=== PATIENT | female | born 1930 | race Caucasian/White ===

== ENCOUNTER 2016-12-01 15:25 | Outpatient (CLI) | payer MEDICARE, OTHER | END 2016-12-01 15:26 | disposition critical access hospital (66) | LOC: EMS 15:25 | PROVIDERS: ATTEND Surgery | DX: S00.11XA Contusion of right eyelid and periocular area, initial encounter (principal); W01.198A Fall on same level from slipping, tripping and stumbling with subsequent striking against other object, initial encounter; Y92.128 Other place in nursing home as the place of occurrence of the external cause | CPT/HCPCS: A0425; A0429 ==

== ENCOUNTER 2016-12-01 15:40 | Emergency (ER) | payer MEDICARE, OTHER ==
--- NOTE | 2016-12-01 15:54 | ED Physician Documentation ---
PD HPI Fall - Stated complaint Stated Complaint: GLF - Chief complaint Chief Complaint: Trauma Hd/Nk - History obtained from History obtained from: Patient, EMS - History of Present Illness Mechanism of injury: Tripped Fall distance: Standing position Where injury occurred: Home Timing - onset: Today Injury(ies) location: Face Quality of pain: Pain Associated symptoms: Amnesia. No: LOC, Seizures, Ear drainage, Nasal drainage, Neck pain, Weakness, Paresthesias, Dyspnea, Nausea / vomiting, Hematemesis, Abdominal distension Symptoms improve with: Rest Worsens with: Movement, Palpation Contributing factors: No: Anticoagulated Similar symptoms before: Has not had sx before Recently seen: Not recently seen - Additional information Additional information: 86 y/o female with an unwitnessed fall at home has a bruise over her right eye and she denies any LOC with this fall and she denies any neck, back or chest pain. Her knees hurt some but she is able to walk and does not feel they are a problem. She has been incontinent. Review of Systems Constitutional: denies: Fever, Chills Eyes: denies: Decreased vision Ears: denies: Ear pain Nose: denies: Congestion Throat: denies: Oral lesions / sores Cardiac: denies: Chest pain / pressure, Palpitations Respiratory: denies: Dyspnea, Cough GI: denies: Abdominal Pain, Nausea, Vomiting : reports: Incontinent. denies: Dysuria, Frequency Skin: denies: Rash Musculoskeletal: denies: Neck pain, Back pain, Extremity pain, Joint pain, Pain with weight bearing Neurologic: reports: Headache, Head injury, Other (poor memory is worse than usual). denies: Generalized weakness, Focal weakness, Numbness, Difficulty speaking, LOC PD PAST MEDICAL HISTORY - Past Medical History Cardiovascular: Hypertension, High cholesterol, Coronary artery disease Neuro: Dementia HEENT: Chronic hearing loss Psych: Depression - Present Medications Home Medications: Ambulatory Orders Medication Instructions Recorded Confirmed Aspirin [Aspirin EC] 81 mg PO DAILY 10/21/14 12/01/16 Cholecalciferol (Vitamin D3) 1 tab PO DAILY 10/21/14 12/01/16 [Vitamin D3] Donepezil [Aricept] 10 mg PO DAILY 10/21/14 12/01/16 Furosemide 40 mg PO DAILY 10/21/14 12/01/16 Lisinopril 10 mg PO DAILY 10/21/14 12/01/16 Metoprolol Tartrate 12.5 mg PO BID 10/21/14 12/01/16 Pravastatin Sodium [Pravachol] 20 mg PO DAILY 10/21/14 12/01/16 Sertraline [Zoloft] 25 mg PO DAILY 10/21/14 12/01/16 Ciprofloxacin HCl [Cipro] 500 mg PO BID #14 tablet 12/01/16 - Allergies Allergies/Adverse Reactions: Allergies Allergy/AdvReac Type Severity Reaction Status Date / Time No Known Drug Allergies Allergy Verified 10/21/14 13:12 - Social History Does the pt smoke?: No Smoking Status: Never smoker Does the pt drink ETOH?: No Does the pt have substance abuse?: No - Immunizations Immunizations are current?: Yes PD ED PE NORMAL - Vitals Vital signs reviewed: Yes (hypertensive ) - General General: No acute distress, Well developed/nourished - HEENT HEENT: PERRL, EOMI, Other (There is a large hematoma to the forehead on the right with ecchymosis consistent with a fresh injury ) - Neck Neck: Supple, no meningeal sign, No bony TTP - Cardiac Cardiac: RRR, No murmur - Respiratory Respiratory: No respiratory distress, Clear bilaterally - Abdomen Abdomen: Soft, Non tender - Derm Derm: Normal color, Warm and dry, No rash - Extremities Extremities: No deformity, No edema - Neuro Neuro: No motor deficit, No sensory deficit, Normal speech - Psych Psych: Normal mood, Normal affect Results - Vitals Vitals: Vital Signs - 24 hr 12/01/16 15:47 Temperature 36.6 C Heart Rate 95 Respiratory 16 Rate Blood Pressure 191/93 H O2 Saturation 97 Oxygen O2 Source Room air - Labs Labs: Laboratory Tests 12/01/16 16:26 Urine Color YELLOW Urine Clarity CLEAR Urine pH 6.0 Ur Specific [place] 1.010 Urine Protein NEGATIVE Urine Glucose (UA) NEGATIVE Urine Ketones NEGATIVE Urine Occult Blood NEGATIVE Urine Nitrite NEGATIVE Urine Bilirubin NEGATIVE Urine Urobilinogen 0.2 (NORMAL) Ur Leukocyte Esterase TRACE H Urine RBC 0-5 Urine WBC 11-25 H Ur Squamous Epith Cells FEW Squamous Urine Bacteria Few Ur Microscopic Review INDICATED Urine Culture Comments INDICATED - Rads (name of study) CT head without Radiology: Prelim report reviewed (Impression: Generalized age-related cortical atrophic changes without evidence of acute intracranial abnormality or interval change.), EMP read indepedently, See rad report PD MEDICAL DECISION MAKING - ED course Complexity details: reviewed old records, reviewed results, re-evaluated patient , considered differential, d/w patient ED course: 86 y/o female with advanced dementia has fallen again and has large hematoma to the forehead and she has UTI. CT is negative for ICH and she is discharged to the care of her daughter. Departure - Departure Disposition: Home, Self Care Clinical Impression: Fall on same level from tripping as cause of accidental injury Facial contusion Qualifiers: Encounter type: initial encounter Qualified Code(s): S00.83XA - Contusion of other part of head, initial encounter Urinary tract infection Qualifiers: Urinary tract infection type: acute cystitis Hematuria presence: without hematuria Qualified Code(s): N30.00 - Acute cystitis without hematuria Instructions: ED UTI Cystitis Female, ED Contusion Face Follow-Up: Michel Bassett MD [Primary Care Provider] - Prescriptions: Ciprofloxacin HCl [Cipro] 500 mg PO BID #14 tablet
[2016-12-01 16:31] LABS: BILIRUBIN,URINE NEGATIVE (NEGATIVE)
[2016-12-01 16:33] LABS: UA w/ MICROSCOPIC CHARGE YES
--- NOTE | 2016-12-01 16:35 | CT Preliminary Report ---
Exam: CT Head W/O IMPRESSION: Generalized age-related cortical atrophic changes without evidence of acute intracranial abnormality or interval change. [facility] SITE ID: [id number]
--- NOTE | 2016-12-01 16:38 | CT Report ---
EXAM: CT HEAD EXAM DATE: 12/01/2016 04:08 PM. CLINICAL HISTORY: Fall. Bruise above right eye. COMPARISON: 10/21/2014. TECHNIQUE: Multiaxial CT images were obtained from the foramen magnum to the vertex. IV contrast: Non e. Reformats: Coronal. In accordance with CT protocol optimization, one or more of the following dose reduction techniques w ere utilized for this exam: automated exposure control, adjustment of mA and/or KV based on patient s ize, or use of iterative reconstructive technique. FINDINGS: Parenchyma: No intraparenchymal hemorrhage. No evidence of mass, midline shift, or CT findings of acu te infarction. Hart-white differentiation is distinct. Extraaxial Spaces: Normal for age. No subdural or epidural collections identified. Ventricles: The ventricles and cortical sulci are prominent, consistent with age-related tissue loss. Sinuses: Imaged paranasal sinuses, orbits, and mastoids show no significant abnormality. Bones: No evidence of fracture or calvarial defect. Other: Stable mild chronic microangiopathic white matter changes are evident. Right frontal scalp hem atoma noted. IMPRESSION: Generalized age-related cortical atrophic changes without evidence of acute intracranial abnormality or interval change. [facility] Referring Provider Line: [phone] SITE ID: [id number]
[2016-12-01 16:58] LABS: UR CULTURE IF IND INDICATED
[2016-12-01 17:59] VITALS: BP 188/86
== END 2016-12-01 17:59 | disposition home or self-care (01) ==
LOC: EDUNIT# → ED 15:40
DX: S00.83XA Contusion of other part of head, initial encounter (principal); W01.0XXA Fall on same level from slipping, tripping and stumbling without subsequent striking against object, initial encounter; Y92.019 Unspecified place in single-family (private) house as the place of occurrence of the external cause; N30.00 Acute cystitis without hematuria; I10 Essential (primary) hypertension; E78.00 Pure hypercholesterolemia, unspecified; I25.10 Atherosclerotic heart disease of native coronary artery without angina pectoris; F03.90 Unspecified dementia, unspecified severity, without behavioral disturbance, psychotic disturbance, mood disturbance, and anxiety; Z79.82 Long term (current) use of aspirin
CPT/HCPCS: 70450; 81001; 81003; 87077; 87086; 99283; 99284

== ENCOUNTER 2016-12-16 08:00 | Outpatient (CLI) | payer MEDICARE, OTHER ==
[2016-12-16 18:48] LABS: BASOPHILS # (AUTO) 0.1 10^3/uL (0.0-0.1); EOSINOPHILS # (AUTO) 0.1 10^3/uL (0.0-0.7); EOSINOPHILS % (AUTO) 2.2 %; HCT - HEMATOCRIT 39.5 % (37.0-47.0); HGB - HEMOGLOBIN 13.3 g/dL (12.0-16.0); LYMPHOCYTES # (AUTO) 0.9 10^3/uL (1.5-3.5); LYMPHOCYTES % (AUTO) 13.5 %; MEAN CORPUSCULAR HEMOGLOBIN 30.1 pg (27.0-31.0); MEAN CORPUSCULAR HGB CONC 33.6 g/dL (32.0-36.0); MEAN CORPUSCULAR VOLUME 89.6 fL (81.0-99.0); MEAN PLATELET VOLUME 9.6 fL (7.9-10.8); MONOCYTES # (AUTO) 0.5 10^3/uL (0.0-1.0); MONOCYTES % (AUTO) 7.3 %; NEUTROPHILS # (AUTO) 5.1 10^3/uL (1.5-6.6); NUCLEATED RED BLOOD CELLS AUTO 0.1 /100WBC; RED CELL DISTRIBUTION WIDTH 14.1 % (12.0-15.0); UNCORRECTED WHITE BLOOD COUNT 6.8 x10^3/uL; WHITE BLOOD COUNT 6.8 x10^3/uL (4.8-10.8)
[2016-12-16 19:06] LABS: ALBUMIN/GLOBULIN RATIO 1.6 (1.0-2.2); BILIRUBIN,TOTAL 0.7 mg/dL (0.2-1.0); CALCIUM 9.8 mg/dL (8.5-10.3); CREATININE 1.3 mg/dL (0.4-1.0); POTASSIUM 3.9 mmol/L (3.5-5.0); TOTAL PROTEIN 6.4 g/dL (6.7-8.2)
== END 2016-12-16 08:01 | disposition home or self-care (01) ==
LOC: LAB.WCP 08:00
PROVIDERS: ATTEND Family Medicine
DX: I50.9 Heart failure, unspecified (principal)
CPT/HCPCS: 36415; 80053; 85025

== ENCOUNTER 2017-02-08 08:22 | Outpatient (CLI) | payer MEDICARE, OTHER | END 2017-02-08 08:23 | disposition critical access hospital (66) | LOC: EMS 08:22 | PROVIDERS: ATTEND Surgery | DX: R04.0 Epistaxis (principal) | CPT/HCPCS: A0425; A0429 ==

== ENCOUNTER 2017-02-08 08:37 | Emergency (ER) | payer MEDICARE, OTHER ==
--- NOTE | 2017-02-08 09:23 | ED Physician Documentation ---
PD HPI HEENT - Stated complaint Stated Complaint: NOSE BLEED - Chief complaint Chief Complaint: Heent - History obtained from History obtained from: Patient - History of Present Illness Timing - onset: How many minutes ago (30), Today Timing - duration: Minutes (30) Timing - details: Abrupt onset (had just blown her nose and bleeding stopped.) Location: Nose (onset nosebleed and has continued, though less with pinching enroute.) Associated symptoms: Other (some nasal congestion the past week.). No: Fever, Cough Similar symptoms before: Has not had sx before Recently seen: Not recently seen Review of Systems Constitutional: denies: Fever, Chills Nose: reports: Congestion. denies: Rhinorrhea / runny nose, Sinus pressure / pain Throat: denies: Sore throat Respiratory: denies: Cough GI: denies: Nausea, Vomiting PD PAST MEDICAL HISTORY - Past Medical History Past Medical History: Yes Cardiovascular: Hypertension, High cholesterol, Coronary artery disease Neuro: Dementia HEENT: Chronic hearing loss Psych: Depression - Present Medications Home Medications: Ambulatory Orders Medication Instructions Recorded Confirmed Cholecalciferol (Vitamin D3) 1 tab PO DAILY 10/21/14 02/08/17 [Vitamin D3] Lisinopril 10 mg PO DAILY 10/21/14 02/08/17 Metoprolol Tartrate 12.5 mg PO BID 10/21/14 02/08/17 Pravastatin Sodium [Pravachol] 20 mg PO DAILY 10/21/14 02/08/17 Sertraline [Zoloft] 25 mg PO DAILY 10/21/14 02/08/17 - Allergies Allergies/Adverse Reactions: Allergies Allergy/AdvReac Type Severity Reaction Status Date / Time No Known Drug Allergies Allergy Verified 02/08/17 08:48 - Social History Does the pt smoke?: No Smoking Status: Never smoker Does the pt drink ETOH?: No Does the pt have substance abuse?: No - Immunizations Immunizations are current?: Yes PD ED PE NORMAL - Vitals Vital signs reviewed: Yes - General General: Alert and oriented X 3, No acute distress, Well developed/nourished - HEENT HEENT: Ears normal, Pharynx benign, Other (left anterior medial wall with small vessel bleeding ongoing when pressure stopped. No erosions. 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, No motor deficit, Normal speech Results - Vitals Vitals: Vital Signs - 24 hr 02/08/17 11:15 Temperature 36.3 C L Heart Rate 96 Respiratory 20 Rate Blood Pressure 174/99 H O2 Saturation 96 Oxygen O2 Source Room air - Labs Labs: Laboratory Tests 02/08/17 02/08/17 10:25 10:25 WBC 8.1 RBC 3.91 L Hgb 11.7 L Hct 34.6 L MCV 88.6 MCH 29.9 MCHC 33.8 RDW 13.9 Plt Count 195 MPV 8.8 Neut # 6.6 Lymph # 0.7 L [place] # 0.6 Eos # 0.1 Baso # 0.1 Absolute Nucleated RBC 0.00 Nucleated RBCs 0.0 Sodium 141 Potassium 4.2 Chloride 109 Carbon Dioxide 27 Anion Gap 5.0 L BUN 33 H Creatinine 1.0 Estimated GFR (MDRD) 52 L Glucose 105 H Calcium 9.6 Total Bilirubin 0.5 AST 16 ALT 11 Alkaline Phosphatase 87 Total Protein 6.0 L Albumin 3.4 Globulin 2.6 Albumin/Globulin Ratio 1.3 Lipase 34 Procedures - Epistaxis Site: Left, Anterior Preparation: Clots removed, Afrin, Lidocaine Treatment: Silver Nitrate, Anterior rhinorocket (initially placed and then she pulled it out when wiped her nose in bathroom. But recheck shows no bleeding, so just put some gauze packing in and no further bleeding.) Other: Observed - no bleeding, Pt tolerated well Departure - Departure Disposition: 01 Home, Self Care Clinical Impression: Epistaxis Condition: Stable Record reviewed to determine appropriate education?: Yes Instructions: ED Nasal Packing Anterior Removable, ED Nosebleed Follow-Up: Michel Bassett MD [Primary Care Provider] - Comments: Leave the gauze packing in the left nostril for a day and then it is okay to remove it gently. If you have recurrent bleeding today, spray the gauze with the oxygen metolazone and pinch it for 10-15 minutes. If bleeding continues then return to the ER. Discharge Date/Time: 02/08/17 11:15
[2017-02-08] MEDS ORDERED: OXYMETAZOLINE NASAL SPRAY NAS STA (09:25)
[2017-02-08] MEDS ORDERED: OXYMETAZOLINE NASAL SPRAY NAS ONE (09:29)
[2017-02-08 10:30] LABS: BASOPHILS # (AUTO) 0.1 10^3/uL (0.0-0.1); BASOPHILS % (AUTO) 0.9 %; EOSINOPHILS # (AUTO) 0.1 10^3/uL (0.0-0.7); EOSINOPHILS % (AUTO) 1.3 %; HCT - HEMATOCRIT 34.6 % (37.0-47.0); HGB - HEMOGLOBIN 11.7 g/dL (12.0-16.0); LYMPHOCYTES # (AUTO) 0.7 10^3/uL (1.5-3.5); LYMPHOCYTES % (AUTO) 8.9 %; MEAN CORPUSCULAR HEMOGLOBIN 29.9 pg (27.0-31.0); MEAN CORPUSCULAR HGB CONC 33.8 g/dL (32.0-36.0); MEAN CORPUSCULAR VOLUME 88.6 fL (81.0-99.0); MEAN PLATELET VOLUME 8.8 fL (7.9-10.8); MONOCYTES # (AUTO) 0.6 10^3/uL (0.0-1.0); MONOCYTES % (AUTO) 7.3 %; NEUTROPHILS # (AUTO) 6.6 10^3/uL (1.5-6.6); NEUTROPHILS % (AUTO) 81.6 %; RED BLOOD COUNT 3.91 10^6/uL (4.20-5.40); RED CELL DISTRIBUTION WIDTH 13.9 % (12.0-15.0); UNCORRECTED WHITE BLOOD COUNT 8.1 x10^3/uL; WHITE BLOOD COUNT 8.1 x10^3/uL (4.8-10.8)
[2017-02-08 10:48] LABS: ALBUMIN/GLOBULIN RATIO 1.3 (1.0-2.2); BILIRUBIN,TOTAL 0.5 mg/dL (0.2-1.0); CALCIUM 9.6 mg/dL (8.5-10.3); POTASSIUM 4.2 mmol/L (3.5-5.0)
[2017-02-08 11:16] VITALS: BP 174/99
== END 2017-02-08 11:15 | disposition home or self-care (01) ==
LOC: EDUNIT# → ED 08:37
DX: R04.0 Epistaxis (principal); I10 Essential (primary) hypertension; I25.10 Atherosclerotic heart disease of native coronary artery without angina pectoris; E78.00 Pure hypercholesterolemia, unspecified; F03.90 Unspecified dementia, unspecified severity, without behavioral disturbance, psychotic disturbance, mood disturbance, and anxiety
CPT/HCPCS: 30903; 36415; 80053; 83690; 85025; 99282; 99283; A9270

== ENCOUNTER 2017-10-13 07:42 | Outpatient (CLI) | payer MEDICARE, OTHER | END 2017-10-13 07:43 | disposition critical access hospital (66) | LOC: EMS 07:42 | PROVIDERS: ATTEND Surgery | DX: S09.90XA Unspecified injury of head, initial encounter (principal); W18.30XA Fall on same level, unspecified, initial encounter; Y92.098 Other place in other non-institutional residence as the place of occurrence of the external cause | CPT/HCPCS: A0425; A0429 ==

== ENCOUNTER 2017-10-13 08:00 | Emergency (ER) | payer MEDICARE, OTHER ==
--- NOTE | 2017-10-13 08:16 | ED Physician Documentation ---
PD HPI Fall - Stated complaint Stated Complaint: FALL - Chief complaint Chief Complaint: General - History obtained from History obtained from: Patient, EMS - History of Present Illness Mechanism of injury: Unknown Fall distance: Unknown Where injury occurred: Other ([facility]) Similar symptoms before: Diagnosis (Review of her medical records reveals previous evaluation in the emergency department for falling.) - Additional information Additional information: The patient is an 86-year-old female who arrives via ambulance from [facility] after staff there this morning found her lying on the floor. She had apparently fallen, but the fall was unwitnessed. She had been sitting in a chair, but it is unknown whether she fell from the chair or from a standing position. She had urinary incontinence, which is not usual for her. She denies any pain at this time, and states she does not know why she was sent to the emergency department. She has a history of dementia. Review of her medical records reveals previous evaluation in the emergency department after falling nearly 1 year ago. Review of Systems Unable to obtain: Dementia Throat: denies: Sore throat Cardiac: denies: Chest pain / pressure Respiratory: denies: Dyspnea GI: denies: Abdominal Pain : denies: Dysuria Musculoskeletal: denies: Neck pain, Back pain, Extremity pain Neurologic: denies: Headache PD PAST MEDICAL HISTORY - Past Medical History Cardiovascular: Hypertension, High cholesterol, Coronary artery disease Neuro: Dementia HEENT: Chronic hearing loss Psych: Depression - Present Medications Home Medications: Ambulatory Orders Medication Instructions Recorded Confirmed Cholecalciferol (Vitamin D3) 1 tab PO DAILY 10/21/14 02/08/17 [Vitamin D3] Lisinopril 10 mg PO DAILY 10/21/14 02/08/17 Metoprolol Tartrate 12.5 mg PO BID 10/21/14 02/08/17 Pravastatin Sodium [Pravachol] 20 mg PO DAILY 10/21/14 02/08/17 Sertraline [Zoloft] 25 mg PO DAILY 10/21/14 02/08/17 Nitrofurantoin [Macrobid] 100 mg PO BID #10 capsule 10/13/17 - Allergies Allergies/Adverse Reactions: Allergies Allergy/AdvReac Type Severity Reaction Status Date / Time Sulfa (Sulfonamide Allergy Unknown Verified 10/13/17 11:00 Antibiotics) - Social History Does the pt smoke?: No Smoking Status: Never smoker Does the pt drink ETOH?: No Does the pt have substance abuse?: No - Immunizations Immunizations are current?: Yes PD ED PE NORMAL - Vitals Vital signs reviewed: Yes (Hypertensive) - General General: Well developed/nourished, Other (Alert, pleasant, confused elderly female.) - HEENT HEENT: PERRL, EOMI, Pharynx benign, Other (Occipital scalp hematoma. No laceration, and no bony step-off palpated.) - Neck Neck: Supple, no meningeal sign, No bony TTP, No JVD - Cardiac Cardiac: RRR - Respiratory Respiratory: No respiratory distress, Clear bilaterally - Abdomen Abdomen: Soft, Non tender - Back Back: No CVA TTP, No spinal TTP - Derm Derm: No rash - Extremities Extremities: No calf tenderness / cord, Other (1+ pedal edema bilaterally.) - Neuro Neuro: No motor deficit, No sensory deficit, Normal speech, Other (Alert but pleasantly confused, consistent with dementia. No focal motor or sensory deficit detected.) Eye Opening: Spontaneous Motor: Obeys Commands Verbal: Confused GCS Score: 14 Results - Vitals Vitals: Vital Signs - 24 hr 10/13/17 10/13/17 10/13/17 08:09 10:26 12:05 Temperature 36.2 C L Heart Rate 87 93 90 Respiratory 20 20 20 Rate Blood Pressure 166/100 H 163/85 H 158/85 H O2 Saturation 96 95 95 10/13/17 10/13/17 14:24 14:31 Temperature 36.4 C L Heart Rate 92 88 Respiratory 19 20 Rate Blood Pressure 174/67 H 168/69 H O2 Saturation 94 95 Oxygen O2 Source Room air - EKG (time done) 08:12 Rate: Rate (enter#) (81) Rhythm: NSR [place]: Normal QRS: LVH Ischemia: ST elevation c/w repol Compare to prior EKG: Old EKG unavailable Computer interpretation: Agree with computer - Labs Labs: Laboratory Tests 10/13/17 10/13/17 10/13/17 08:27 08:27 09:15 WBC 10.0 RBC 4.40 Hgb 13.1 Hct 38.8 MCV 88.2 MCH 29.8 MCHC 33.8 RDW 14.1 Plt Count 179 MPV 8.7 Neut # 8.6 H Lymph # 0.6 L [place] # 0.6 Eos # 0.1 Baso # 0.1 Absolute Nucleated RBC 0.00 Nucleated RBC % 0.0 Sodium 139 Potassium 3.8 Chloride 105 Carbon Dioxide 28 Anion Gap 6.0 BUN 27 H Creatinine 1.0 Estimated GFR (MDRD) 52 L Glucose 117 H Calcium 9.8 Urine Color LT. YELLOW Urine Clarity CLOUDY Urine pH 6.5 Ur Specific [place] 1.015 Urine Protein NEGATIVE Urine Glucose (UA) NEGATIVE Urine Ketones NEGATIVE Urine Occult Blood TRACE-LYSE Urine Nitrite POSITIVE H Urine Bilirubin NEGATIVE Urine Urobilinogen 0.2 (NORMAL) Ur Leukocyte Esterase LARGE H Urine RBC 0-5 Urine WBC >25 H Ur Epithelial Cells FEW Transitional Ur Squamous Epith Cells RARE Squamous Urine Bacteria Many H Ur Microscopic Review INDICATED Urine Culture Comments INDICATED - Rads (name of study) Head CT Radiology: Prelim report reviewed, EMP read contemporaneously, See rad report ( 1) Acute left frontal subarachnoid hemorrhage. 2) large right posterior soft tissue hematoma near the vertex. 3) generalized age-related cortical atrophic changes.) Repeat head CT Radiology: Prelim report reviewed, EMP read contemporaneously, See rad report (1 ) Unchanged small foci of left sided subarachnoid hemorrhage. No new intracranial hemorrhage. 2) Unchanged scalp swelling and hematoma.) PD MEDICAL DECISION MAKING - ED course Complexity details: reviewed old records, reviewed results, re-evaluated patient , considered differential, d/w patient, d/w family, d/w clinical application consultant ED course: The patient's presentation is significant for a fall that resulted in occipital scalp hematoma and a tiny subarachnoid hemorrhage. The patient was asymptomatic , without headache or nausea, and with no motor or sensory deficit on physical examination. I discussed her condition with the neurosurgeon at [facility], who evaluated the CT images. He advised repeat CT scan in 4 hours, and if no change he recommends discharge back to the adult care facility, with no clinical need for hospitalization. A repeat CT scan of the head at 4 hours after the first, revealed no change in the tiny subarachnoid hemorrhage. The patient's urinalysis, obtained by catheterized specimen, revealed pyuria and bacteriuria, consistent with urinary tract infection. I doubt pyelonephritis nor sepsis. Treatment in the emergency department included administration of ceftriaxone 1 g IV. She is being discharged with prescription for Macrobid. I discussed with her and her daughter, as well as staff at [facility], her diagnosis, outpatient treatment and follow-up, as well as potentially worrisome signs or symptoms that should prompt reevaluation in the emergency department Departure - Departure Disposition: 01 Home, Self Care Clinical Impression: Fall Qualifiers: Encounter type: initial encounter Qualified Code(s): W19.XXXA - Unspecified fall, initial encounter Closed head injury Qualifiers: Encounter type: initial encounter Qualified Code(s): S09.90XA - Unspecified injury of head, initial encounter Scalp hematoma Qualifiers: Encounter type: initial encounter Qualified Code(s): S00.03XA - Contusion of scalp, initial encounter Urinary tract infection Qualifiers: Urinary tract infection type: acute cystitis Hematuria presence: without hematuria Qualified Code(s): N30.00 - Acute cystitis without hematuria Condition: Stable Instructions: ED Head Injury Closed, ED UTI Cystitis Female Follow-Up: Michel Bassett MD [Provider Admit Priv/Credential] - Prescriptions: Nitrofurantoin [Macrobid] 100 mg PO BID #10 capsule Comments: Drink plenty of fluids, including cranberry juice. Take Macrobid twice daily as prescribed. Use Tylenol or ibuprofen as needed for headache or fever. Follow up with your primary physician within 2 weeks. Call to schedule appointment. Return to the emergency department if you develop increasing headache, persistent vomiting, fever with shaking chills, or otherwise worsening symptoms. Discharge Date/Time: 10/13/17 14:31
[2017-10-13 08:33] LABS: BASOPHILS # (AUTO) 0.1 10^3/uL (0.0-0.1); BASOPHILS % (AUTO) 0.6 %; EOSINOPHILS # (AUTO) 0.1 10^3/uL (0.0-0.7); EOSINOPHILS % (AUTO) 1.1 %; HGB - HEMOGLOBIN 13.1 g/dL (12.0-16.0); LYMPHOCYTES # (AUTO) 0.6 10^3/uL (1.5-3.5); LYMPHOCYTES % (AUTO) 5.6 %; MEAN CORPUSCULAR HEMOGLOBIN 29.8 pg (27.0-31.0); MEAN CORPUSCULAR HGB CONC 33.8 g/dL (32.0-36.0); MEAN CORPUSCULAR VOLUME 88.2 fL (81.0-99.0); MEAN PLATELET VOLUME 8.7 fL (7.9-10.8); MONOCYTES # (AUTO) 0.6 10^3/uL (0.0-1.0); MONOCYTES % (AUTO) 6.2 %; NEUTROPHILS # (AUTO) 8.6 10^3/uL (1.5-6.6); NEUTROPHILS % (AUTO) 86.5 %; PLT - PLATELET COUNT 179 10^3/uL (130-450); RED CELL DISTRIBUTION WIDTH 14.1 % (12.0-15.0)
[2017-10-13 08:41] LABS: CALCIUM 9.8 mg/dL (8.5-10.3)
--- NOTE | 2017-10-13 09:25 | CT Report ---
EXAM: CT HEAD EXAM DATE: 10/13/2017 08:46 AM. CLINICAL HISTORY: Fall with occipital scalp hematoma. COMPARISON: Prior head CT exams from 12/01/2016 and 10/21/2014. TECHNIQUE: Multiaxial CT images were obtained from the foramen magnum to the vertex. Reformats: Coron al and corrected axial. IV contrast: None. In accordance with CT protocol optimization, one or more of the following dose reduction techniques w ere utilized for this exam: automated exposure control, adjustment of mA and/or KV based on patient s ize, or use of iterative reconstructive technique. FINDINGS: Parenchyma: No intraparenchymal hemorrhage. No evidence of mass, midline shift, or CT findings of acu te infarction. Hart-white differentiation is distinct. Diffuse chronic microangiopathic white matter changes are evident. Extraaxial Spaces: A 5 mm hyperdensity along left frontal lobe on coronal image 20 is worrisome for a cute subarachnoid hemorrhage. This was not present on prior head CT exams. Ventricles: The ventricles and cortical sulci are enlarged, consistent with age-related tissue loss. Sinuses and orbits: Imaged paranasal sinuses, orbits, and mastoids show no significant abnormality. Bones: No depressed calvarial fracture. Other: Large right posterior soft tissue hematoma near the vertex. IMPRESSION: 1. Acute left frontal subarachnoid hemorrhage. 2. Large right posterior soft tissue hematoma near the vertex. 3. Generalized age-related cortical atrophic changes. CRITICAL RESULT: The findings were discussed with Dr. Swartz on date of exam at 9:21 AM. [facility] Referring Provider Line: [phone] SITE ID: [id number]
[2017-10-13 09:35] LABS: BILIRUBIN,URINE NEGATIVE (NEGATIVE); GLUCOSE, URINE (UA) NEGATIVE (NEGATIVE); KETONES,URINE (UA) NEGATIVE (NEGATIVE); LEUKOCYTE ESTERASE, URINE LARGE (NEGATIVE); NITRITE,URINE POSITIVE (NEGATIVE); OCCULT BLOOD,URINE TRACE-LYSE (NEGATIVE); PH,URINE 6.5 PH (5.0-7.5); PROTEIN,URINE NEGATIVE (NEGATIVE); UROBILINOGEN,URINE 0.2 (NORMAL) E.U./dL (NORMAL)
[2017-10-13 09:37] LABS: CLARITY,URINE CLOUDY (CLEAR)
[2017-10-13 09:53] LABS: BACTERIA,URINE Many /HPF (None Seen); RBC,URINE 0-5 /HPF (0-5); SQUAMOUS EPITHELIAL CELL,UR RARE Squamous (<= Few)
[2017-10-13] MEDS ORDERED: cefTRIAXone 1 GM in SODIUM CHLORIDE 0.9% MINIBAG 100 ML IV STA (10:38)
--- NOTE | 2017-10-13 13:24 | CT Report ---
EXAM: CT HEAD EXAM DATE: 10/13/2017 01:14 PM. CLINICAL HISTORY: [address] to [address] showing small SAH. COMPARISON: Same day at 0 839. TECHNIQUE: Multiaxial CT images were obtained from the foramen magnum to the vertex. Reformats: Coron al. IV contrast: None. In accordance with CT protocol optimization, one or more of the following dose reduction techniques w ere utilized for this exam: automated exposure control, adjustment of mA and/or KV based on patient s ize, or use of iterative reconstructive technique. FINDINGS: Brain and ventricles: No parenchymal hemorrhage. Two small foci of hyperdensity overlying the left fr ontal and parietal lobes are unchanged. No new extra-axial hemorrhage. No mass effect or midline shif t. No evidence of acute infarct. Ventricles are within normal limits in size. Sinuses and Orbits: Imaged paranasal sinuses, orbits, and mastoids show no significant abnormality. Bones: No evidence of fracture or calvarial defect. Hyperostosis frontalis interna. Other: Unchanged scalp swelling and hematoma. IMPRESSION: 1. Unchanged small foci of left sided subarachnoid hemorrhage. No new intracranial hemorrhage. 2. Unchanged scalp swelling and hematoma. [facility] Referring Provider Line: [phone] SITE ID: [id number]
[2017-10-13 14:33] VITALS: BP 168/69
== END 2017-10-13 14:31 | disposition home or self-care (01) ==
LOC: EDUNIT# → ED 08:00
DX: S09.90XA Unspecified injury of head, initial encounter (principal); S00.03XA Contusion of scalp, initial encounter; W19.XXXA Unspecified fall, initial encounter; N30.00 Acute cystitis without hematuria; F03.90 Unspecified dementia, unspecified severity, without behavioral disturbance, psychotic disturbance, mood disturbance, and anxiety; I10 Essential (primary) hypertension; I25.10 Atherosclerotic heart disease of native coronary artery without angina pectoris; E78.00 Pure hypercholesterolemia, unspecified
CPT/HCPCS: 36415; 70450; 80048; 81001; 81003; 85025; 87077; 87086; 93005; 96365; 99284

== ENCOUNTER 2017-10-22 09:20 | Outpatient (CLI) | payer MEDICARE, OTHER | END 2017-10-22 09:21 | disposition critical access hospital (66) | LOC: EMS 09:20 | PROVIDERS: ATTEND Surgery | DX: R04.0 Epistaxis (principal) | CPT/HCPCS: A0425; A0429 ==

== ENCOUNTER 2017-10-22 09:38 | Emergency (ER) | payer MEDICARE, OTHER ==
--- NOTE | 2017-10-22 10:18 | ED Physician Documentation ---
PD HPI Fall - Stated complaint Stated Complaint: Nose bleed - Chief complaint Chief Complaint: General - History obtained from History obtained from: Patient - History of Present Illness Mechanism of injury: Unknown Fall distance: Standing position Where injury occurred: Home Timing - onset: Today Injury(ies) location: Face Quality of pain: Pain Associated symptoms: Amnesia, Other (bloody nose) Worsens with: Movement Contributing factors: No: Anticoagulated Similar symptoms before: Diagnosis (subarrachnoid) Recently seen: Emergency Dept - Additional information Additional information: 86-year-old female who is been recently seen in the emergency department for a fall and had a tiny subarachnoid hemorrhage is living at [facility] in the memory care unit and she has had another fall today. She was found with a bloody nose. She is uncertain how the fall happened and this was unwitnessed. Review of Systems Constitutional: denies: Fever Eyes: denies: Decreased vision Ears: reports: Loss of hearing Nose: denies: Rhinorrhea / runny nose Throat: denies: Dental pain / toothache, Oral lesions / sores Respiratory: denies: Dyspnea, Cough GI: denies: Vomiting : reports: Incontinent. denies: Dysuria Skin: denies: Rash Musculoskeletal: denies: Neck pain, Back pain, Extremity pain PD PAST MEDICAL HISTORY - Past Medical History Past Medical History: Yes Cardiovascular: Hypertension, High cholesterol, Coronary artery disease HEENT: Chronic hearing loss Psych: Depression - Past Surgical History Past Surgical History: No - Present Medications Home Medications: Ambulatory Orders Medication Instructions Recorded Confirmed Cholecalciferol (Vitamin D3) 1 tab PO DAILY 10/21/14 02/08/17 [Vitamin D3] Lisinopril 10 mg PO DAILY 10/21/14 02/08/17 Metoprolol Tartrate 12.5 mg PO BID 10/21/14 02/08/17 Pravastatin Sodium [Pravachol] 20 mg PO DAILY 10/21/14 02/08/17 Sertraline [Zoloft] 25 mg PO DAILY 10/21/14 02/08/17 Nitrofurantoin [Macrobid] 100 mg PO BID #10 capsule 10/13/17 Levofloxacin [Levaquin] 500 mg PO DAILY #7 tablet 10/22/17 - Allergies Allergies/Adverse Reactions: Allergies Allergy/AdvReac Type Severity Reaction Status Date / Time Sulfa (Sulfonamide Allergy Unknown Verified 10/13/17 11:00 Antibiotics) - Social History Does the pt smoke?: No Smoking Status: Never smoker Does the pt drink ETOH?: No Does the pt have substance abuse?: No - Immunizations Immunizations are current?: Yes PD ED PE NORMAL - Vitals Vital signs reviewed: Yes (hypertensive ) - General General: No acute distress, Well developed/nourished - HEENT HEENT: PERRL, EOMI, Other (There is bruising to the nasal bridge and blood from the left septum that is now arrested. ) - Neck Neck: Supple, no meningeal sign, No bony TTP - Cardiac Cardiac: RRR, No murmur - Respiratory Respiratory: No respiratory distress, Clear bilaterally - Abdomen Abdomen: Soft, Non tender - Back Back: No CVA TTP, No spinal TTP - Derm Derm: Normal color, Warm and dry, No rash - Extremities Extremities: No deformity, Other (There is peripheral edema bilaterally to the ankles. ) - Neuro Neuro: No motor deficit, No sensory deficit, Other (she is quite hard of hearing. ) Eye Opening: Spontaneous Motor: Obeys Commands Verbal: Confused GCS Score: 14 - Psych Psych: Normal mood, Normal affect Results - Vitals Vitals: Vital Signs - 24 hr 10/22/17 09:42 Temperature 36.7 C Heart Rate 90 Respiratory 18 Rate Blood Pressure 150/95 H O2 Saturation 93 Oxygen O2 Source Room air - Labs Labs: Laboratory Tests 10/22/17 10/22/17 10/22/17 10:15 10:15 10:15 WBC 8.5 RBC 4.10 L Hgb 12.3 Hct 36.5 L MCV 89.0 MCH 30.0 MCHC 33.8 RDW 14.1 Plt Count 173 MPV 8.6 Neut # 6.9 H Lymph # 0.5 L [place] # 0.7 Eos # 0.2 Baso # 0.1 Absolute Nucleated RBC 0.00 Nucleated RBC % 0.0 PT 11.5 INR 1.0 Sodium 138 Potassium 4.1 Chloride 104 Carbon Dioxide 27 Anion Gap 7.0 BUN 30 H Creatinine 1.0 Estimated GFR (MDRD) 52 L Glucose 106 H Calcium 9.5 Total Bilirubin 0.8 AST 15 ALT 12 Alkaline Phosphatase 88 Troponin I Total Protein 6.3 L Albumin 3.5 Globulin 2.8 Albumin/Globulin Ratio 1.3 Lipase 38 Urine Color Urine Clarity Urine pH Ur Specific [place] Urine Protein Urine Glucose (UA) Urine Ketones Urine Occult Blood Urine Nitrite Urine Bilirubin Urine Urobilinogen Ur Leukocyte Esterase Urine RBC Urine WBC Ur Squamous Epith Cells Urine Bacteria Ur Microscopic Review Urine Culture Comments 10/22/17 10/22/17 10:15 10:45 WBC RBC Hgb Hct MCV MCH MCHC RDW Plt Count MPV Neut # Lymph # [place] # Eos # Baso # Absolute Nucleated RBC Nucleated RBC % PT INR Sodium Potassium Chloride Carbon Dioxide Anion Gap BUN Creatinine Estimated GFR (MDRD) Glucose Calcium Total Bilirubin AST ALT Alkaline Phosphatase Troponin I < 0.04 Total Protein Albumin Globulin Albumin/Globulin Ratio Lipase Urine Color YELLOW Urine Clarity CLOUDY Urine pH 6.0 Ur Specific [place] 1.020 Urine Protein 30 H Urine Glucose (UA) NEGATIVE Urine Ketones NEGATIVE Urine Occult Blood MODERATE H Urine Nitrite POSITIVE H Urine Bilirubin NEGATIVE Urine Urobilinogen 0.2 (NORMAL) Ur Leukocyte Esterase MODERATE H Urine RBC 11-25 H Urine WBC >25 H Ur Squamous Epith Cells RARE Squamous Urine Bacteria Moderate H Ur Microscopic Review INDICATED Urine Culture Comments INDICATED - Rads (name of study) CT head without Radiology: Prelim report reviewed (Impression: 1. No acute intracranial abnormality. 2. Near complete opacification of the left nasal cavity with air- fluid level in the left maxillary sinus measuring complex fluid in attenuation which may represent blood. 3. Resolving subcutaneous hematoma along the right posterior skull near the vertex. 4. Evolving small focus of cerebral subarachnoid hematoma on the left no new or enlarging subarachnoid hemorrhage.) , EMP read indepedently, See rad report Procedures - IVC sono (time) 1010 Bedside IVC sono: IVC measures (cm) (1.78), Euvolemia PD MEDICAL DECISION MAKING - ED course Complexity details: reviewed results, re-evaluated patient, considered differential, d/w patient ED course: 86 y/o female with another fall and bloody nose has no progression of findings on CT but continues to have an issue with UTI. She was on macrobid and the organism cultured was sensitive. Today we will change to levaquin. Departure - Departure Disposition: 01 Home, Self Care Clinical Impression: Epistaxis, Fall on same level from tripping as cause of accidental injury Facial contusion Qualifiers: Encounter type: initial encounter Qualified Code(s): S00.83XA - Contusion of other part of head, initial encounter Urinary tract infection Qualifiers: Urinary tract infection type: acute cystitis Hematuria presence: without hematuria Qualified Code(s): N30.00 - Acute cystitis without hematuria Instructions: ED Nosebleed, ED UTI Cystitis Female Follow-Up: Michel Bassett MD [Primary Care Provider] - Prescriptions: Levofloxacin [Levaquin] 500 mg PO DAILY #7 tablet
[2017-10-22 10:22] LABS: BASOPHILS # (AUTO) 0.1 10^3/uL (0.0-0.1); BASOPHILS % (AUTO) 0.9 %; EOSINOPHILS # (AUTO) 0.2 10^3/uL (0.0-0.7); EOSINOPHILS % (AUTO) 2.5 %; HGB - HEMOGLOBIN 12.3 g/dL (12.0-16.0); LYMPHOCYTES # (AUTO) 0.5 10^3/uL (1.5-3.5); LYMPHOCYTES % (AUTO) 6.5 %; MEAN CORPUSCULAR HGB CONC 33.8 g/dL (32.0-36.0); MEAN PLATELET VOLUME 8.6 fL (7.9-10.8); MONOCYTES # (AUTO) 0.7 10^3/uL (0.0-1.0); MONOCYTES % (AUTO) 8.2 %; NEUTROPHILS # (AUTO) 6.9 10^3/uL (1.5-6.6); NEUTROPHILS % (AUTO) 81.9 %; PLT - PLATELET COUNT 173 10^3/uL (130-450); RED CELL DISTRIBUTION WIDTH 14.1 % (12.0-15.0); WHITE BLOOD COUNT 8.5 x10^3/uL (4.8-10.8)
[2017-10-22 10:29] LABS: PT - PROTHROMBIN TIME 11.5 secs (9.9-12.6)
[2017-10-22 10:34] LABS: ALBUMIN 3.5 g/dL (3.2-5.5); ALBUMIN/GLOBULIN RATIO 1.3 (1.0-2.2); BILIRUBIN,TOTAL 0.8 mg/dL (0.2-1.0); CALCIUM 9.5 mg/dL (8.5-10.3); TOTAL PROTEIN 6.3 g/dL (6.7-8.2)
[2017-10-22 11:00] LABS: BILIRUBIN,URINE NEGATIVE (NEGATIVE); CLARITY,URINE CLOUDY (CLEAR); GLUCOSE, URINE (UA) NEGATIVE (NEGATIVE); KETONES,URINE (UA) NEGATIVE (NEGATIVE); LEUKOCYTE ESTERASE, URINE MODERATE (NEGATIVE); NITRITE,URINE POSITIVE (NEGATIVE); OCCULT BLOOD,URINE MODERATE (NEGATIVE); PROTEIN,URINE 30 mg/dL (NEGATIVE); UROBILINOGEN,URINE 0.2 (NORMAL) E.U./dL (NORMAL)
[2017-10-22 11:13] LABS: BACTERIA,URINE Moderate /HPF (None Seen); SQUAMOUS EPITHELIAL CELL,UR RARE Squamous (<= Few)
--- NOTE | 2017-10-22 11:53 | CT Report ---
EXAM: CT HEAD EXAM DATE: 10/22/2017 10:54 AM. CLINICAL HISTORY: Fall nose bleed recent subarrachnoid. COMPARISON: Head CT dated 10/13/2017. TECHNIQUE: Multiaxial CT images were obtained from the foramen magnum to the vertex. Reformats: Coron al. IV contrast: None. In accordance with CT protocol optimization, one or more of the following dose reduction techniques w ere utilized for this exam: automated exposure control, adjustment of mA and/or KV based on patient s ize, or use of iterative reconstructive technique. FINDINGS: Parenchyma: No intraparenchymal hemorrhage. No evidence of mass, midline shift, or CT findings of inf arction. Hart-white differentiation is distinct. Extraaxial Spaces: Normal for age. Small focus of evolving subarachnoid hemorrhage on the left which is decreased in attenuation since prior examination. This is not increased in size. Ventricles: Normal in size and position. Sinuses and Orbits: Near complete opacification of the left nasal cavity with air-fluid level in the left maxillary sinus measuring 77 Hounsfield units in attenuation. Bones: No evidence of fracture or calvarial defect. Other: Evolving subcutaneous emphysema along the posterior right skull many apex. No underlying fract ure. IMPRESSION: 1. No acute intracranial abnormality. 2. Near-complete opacification of the left nasal cavity with air-fluid level in the left maxillary si nus measuring complex fluid in attenuation which may represent blood. 3. Resolving subcutaneous hematoma along the right posterior skull near the vertex. 4. Evolving small focus of subarachnoid hematoma on the left. No new or enlarging subarachnoid hemorr casey. [facility] Referring Provider Line: [phone] SITE ID: [id number]
[2017-10-22 12:20] VITALS: BP 144/90
== END 2017-10-22 12:27 | disposition home or self-care (01) ==
LOC: ED 09:38
DX: S00.33XA Contusion of nose, initial encounter (principal); W01.0XXA Fall on same level from slipping, tripping and stumbling without subsequent striking against object, initial encounter; Y92.129 Unspecified place in nursing home as the place of occurrence of the external cause; R04.0 Epistaxis; N30.00 Acute cystitis without hematuria; Z87.820 Personal history of traumatic brain injury; Z91.81 History of falling; I10 Essential (primary) hypertension; H91.90 Unspecified hearing loss, unspecified ear
CPT/HCPCS: 36415; 70450; 80053; 81001; 81003; 83690; 84484; 85025; 85610; 87077; 87086; 99283

== ENCOUNTER 2018-05-16 09:10 | Outpatient (CLI) | payer MEDICARE, OTHER ==
[2018-05-16 12:37] LABS: BASOPHILS # (AUTO) 0.1 10^3/uL (0.0-0.1); BASOPHILS % (AUTO) 1.2 %; EOSINOPHILS # (AUTO) 0.1 10^3/uL (0.0-0.7); EOSINOPHILS % (AUTO) 1.9 %; HGB - HEMOGLOBIN 13.2 g/dL (12.0-16.0); LYMPHOCYTES # (AUTO) 0.7 10^3/uL (1.5-3.5); LYMPHOCYTES % (AUTO) 11.8 %; MEAN CORPUSCULAR HEMOGLOBIN 30.4 pg (27.0-31.0); MEAN CORPUSCULAR HGB CONC 34.3 g/dL (32.0-36.0); MEAN CORPUSCULAR VOLUME 88.6 fL (81.0-99.0); MEAN PLATELET VOLUME 9.5 fL (7.9-10.8); MONOCYTES # (AUTO) 0.5 10^3/uL (0.0-1.0); MONOCYTES % (AUTO) 7.8 %; NEUTROPHILS # (AUTO) 4.5 10^3/uL (1.5-6.6); NEUTROPHILS % (AUTO) 77.3 %; PLT - PLATELET COUNT 196 10^3/uL (130-450); RED BLOOD COUNT 4.36 10^6/uL (4.20-5.40); RED CELL DISTRIBUTION WIDTH 13.8 % (12.0-15.0); WHITE BLOOD COUNT 5.8 x10^3/uL (4.8-10.8)
[2018-05-16 12:56] LABS: ALBUMIN 4.1 g/dL (3.2-5.5); ALBUMIN/GLOBULIN RATIO 1.6 (1.0-2.2); ALKALINE PHOSPHATASE 108 IU/L (42-121); ALT ALANINE AMINOTRANSFERASE 13 IU/L (10-60); AST ASPARTATE AMINOTRANSFERASE 19 IU/L (10-42); BILIRUBIN,TOTAL 0.9 mg/dL (0.2-1.0); BUN - BLOOD UREA NITROGEN 31 mg/dL (6-20); CALCIUM 9.8 mg/dL (8.5-10.3); CARBON DIOXIDE - CO2 28 mmol/L (21-32); CHLORIDE 104 mmol/L (101-111); CHOL/HDL RATIO 3.3 (<4.4); CHOLESTEROL 197 mg/dL; GFR - MDRD 52 (>89); GLUCOSE 109 mg/dL (70-100); HDL CHOLESTEROL 60 mg/dL; LDL CHOLESTEROL,CALCULATED 102 mg/dL; LDL/HDL RATIO 1.7 (<4.4); SODIUM 138 mmol/L (135-145); TOTAL PROTEIN 6.7 g/dL (6.7-8.2); VLDL CHOLESTEROL 35 mg/dL
== END 2018-05-16 23:59 | disposition home or self-care (01) ==
LOC: LAB.WCP 09:10
PROVIDERS: ATTEND Family Medicine
DX: I10 Essential (primary) hypertension (principal); E78.5 Hyperlipidemia, unspecified; F32.9 Major depressive disorder, single episode, unspecified
CPT/HCPCS: 36415; 80053; 80061; 83721; 84443; 85025